=== PATIENT | female | born 1975 | race African-American/Black ===

== ENCOUNTER 2017-06-07 08:38 | Outpatient (CLI) | payer OTHER ==
--- NOTE | 2017-06-07 11:56 | MMO ---
BILATERAL SCREENING MAMMOGRAMS: Comparison: Outside mammogram films, 2012 and 2010. This study is interpreted with the assistance of computer aided detection. FINDINGS: Patient has breast augmentation with implants placed in 2013. There is a heterogeneously dense glandular pattern. The implants appear intact. No mass, distortion o r suspicious calcification. Recommend one year follow up. IMPRESSION: BIRADS 1 - negative. POS: ROBERT
== END 2017-06-07 08:39 | disposition home or self-care (01) ==
LOC: SCSMAMMO 08:38
PROVIDERS: ATTEND Family Medicine
DX: Z12.31 Encounter for screening mammogram for malignant neoplasm of breast (principal); Z80.3 Family history of malignant neoplasm of breast
CPT/HCPCS: 77067

== ENCOUNTER 2018-06-13 09:23 | Outpatient (CLI) | payer OTHER ==
--- NOTE | 2018-06-13 11:38 | ULT ---
ABDOMINAL ULTRASOUND: 06/13/2018 PROVIDED CLINICAL HISTORY: Hepatitis B and abdominal pain. COMPARISON: None. FINDINGS: The abdominal aorta is obscured by overlying bowel content. The visualized IVC and pancreas appear n ormal. The liver demonstrates no evidence for mass or intrahepatic biliary ductal dilatation. The common du ct is not dilated. The gallbladder demonstrates no stones, wall thickening, or pericholecystic fluid . Linear foci of increased echogenicity are seen within the gallbladder lumen, presumably reflecting tumefactive sludge. Some of these could also represent gallbladder folds. The kidneys demonstrate no hydronephrosis or mass. The spleen is not enlarged and demonstrates no fo meaghan abnormality. IMPRESSION: 1. No evidence for an acute process. 2. Material within the gallbladder lumen having a somewhat linear configuration, nonspecific. This may reflect tumefactive sludge. POS: TPC
--- NOTE | 2018-06-13 11:47 | ULT ---
TRANSABDOMINAL AND TRANSVAGINAL PELVIC ULTRASOUND WITH DOPPLER: DATE: 06/13/2018. PROVIDED CLINICAL HISTORY: Fibroids. FINDINGS: No comparisons. Uterus measures about 14.5 x 10.8 x 10.5 cm and demonstrates a diffusely heterogeneo us appearance with multifocal areas of circumscribed altered echogenicity within the myometrium jose tible with fibroids. Some of these appear calcified. The largest discrete area measures about 4.5 c m and is located within the region of the uterine fundus. The endometrium is suboptimally evaluated given its obscuration by shadowing from calcifications associated with these fibroids, but appears pr ominent in thickness in portions measuring up to 1.5 cm. The right and left ovaries appear sonographically normal. Color Doppler and spectral analysis of the ovarian waveforms demonstrates normal flow bilaterally. There is no evidence for significant free pelvic fluid. IMPRESSION: 1. Findings most compatible with uterine fibroid disease. Extent and location of fibroid disease co uld be better characterized via pelvic MRI as clinically indicated. 2. Nonspecific prominence of the uterine endometrium, suboptimally evaluated on the basis of this st udy. POS: TPC
== END 2018-06-13 09:24 | disposition home or self-care (01) ==
LOC: ULT 09:23
PROVIDERS: ATTEND Family Medicine
DX: D25.9 Leiomyoma of uterus, unspecified (principal); B18.1 Chronic viral hepatitis B without delta-agent
CPT/HCPCS: 76700; 76856

== ENCOUNTER 2018-08-09 07:57 | Outpatient (CLI) | payer OTHER ==
--- NOTE | 2018-08-09 08:48 | MMO ---
Bilateral MAMMO Bilat Diag DDI+HERBIE. CLINICAL HISTORY: Patient is 42 years old and is seen for diagnostic exam. The patient has the following family history of breast cancer: mother, at age 45, ; maternal grandmother and maternal aunt. The patient has a history of bilateral Implants in 2013 - SILICONE GEL. VIEWS: The views performed were: bilateral craniocaudal; bilateral mediolateral oblique; bilateral mediolateral; bilateral Implant displaced with tomosynthesis; and right exaggerated craniocaudal. FILMS COMPARED: The present examination has been compared to prior imaging studies performed at [facility] on 07/26/2010, 02/14/2013, 06/07/2017 and 08/09/2018. MAMMOGRAM FINDINGS: The breasts are heterogeneously dense, which could obscure a lesion on mammography. Normal implants are present.. There are no suspicious masses, suspicious calcifications, or new areas of architectural distortion. IMPRESSION: THERE IS NO MAMMOGRAPHIC EVIDENCE OF MALIGNANCY. A ROUTINE FOLLOW-UP MAMMOGRAM IN 1 YEAR IS RECOMMENDED. THE RESULTS OF THIS EXAM WERE SENT TO THE PATIENT. ACR BI-RADS Category 2 - Benign finding MAMMOGRAPHY NOTE: 1. A negative mammogram report should not delay a biopsy if a dominant of clinically suspicious mass is present. 2. Approximately 10% to 15% of breast cancers are not detected by mammography. 3. Adenosis and dense breasts may obscure an underlying neoplasm.
--- NOTE | 2018-08-09 09:06 | ULT ---
LIMITED SOFT TISSUE ULTRASOUND: Date: 08/09/18 PROVIDED CLINICAL HISTORY: Palpable abnormality. FINDINGS: Limited sonographic interrogation was performed of the soft tissues in the region of palpable concern at the patient's right infra-axillary region. This abnormality is not in a portion of the breast. Th ere is no real-time sonographic evidence for a focal mass. IMPRESSION: No sonographic correlate for the reported palpable finding in the soft tissues of the patient's right back. POS: OFF
== END 2018-08-09 07:58 | disposition home or self-care (01) ==
LOC: BICMAMMO 07:57
PROVIDERS: ATTEND Family Medicine
DX: N63.10 Unspecified lump in the right breast, unspecified quadrant (principal); Z80.3 Family history of malignant neoplasm of breast; Z98.82 Breast implant status
CPT/HCPCS: 76999; 77066; G0279

== ENCOUNTER 2018-08-30 09:14 | Inpatient (IN) | payer OTHER ==
--- NOTE | 2018-08-29 10:46 | HP ---
ADMITTING DIAGNOSES: 1. Fibroids, 14 to 16-week size. 2. Menorrhagia. 3. Dysmenorrhea. 4. Pelvic pain. 5. Family history of breast and ovarian cancer. SCHEDULED PROCEDURE: Total abdominal hysterectomy, bilateral salpingo-oophorectomy. HISTORY OF PRESENT ILLNESS: Ms. Ramesh is a 42-year-old, 2, para 2, status post x2, who first presented [place] in [place], complaining of menorrhagia. At that time, she was found to have multi-fibroid uterus with a positive family history and declined surgical management. She was given Lysteda for management of her menorrhagia; however, the patient had less than satisfactory results and desires definitive surgical management. IT OPERATIONS SPECIALIST HISTORY: x2. No history of dysplasia. Normal Pap smear at [facility] in January of 2017. PAST MEDICAL HISTORY: Significant for; 1. History of chronic viral hepatitis B without LFT abnormalities. 2. Hyperlipidemia. 3. Hypertension. SURGICAL HISTORY: Significant for breast augmentation. ALLERGIES: DENIES. MEDICATIONS: 1. Hydrochlorothiazide 25 p.o. daily. 2. Lysteda 650 two p.o. t.i.d. p.r.n. menorrhagia. 3. Pravastatin 20 mg p.o. daily. SOCIAL HISTORY: Denies tobacco, alcohol, or IV drug abuse. FAMILY HISTORY: Positive for first and second-degree relatives with breast cancer. REVIEW OF SYSTEMS: Unremarkable except for aforementioned complaints. PHYSICAL EXAMINATION: GENERAL: Black female. VITAL SIGNS: 5 feet and 5 inches, weight 140, BMI 23. Blood pressure 102/74, pulse 66, respirations 18. HEENT: Within normal limits. LUNGS: Clear to auscultation bilaterally. HEART: Regular rate and rhythm. BREASTS: Without masses bilaterally, status post augmentation. ABDOMEN: Soft and nontender with palpable irregular uterine contour, approximately 14 to 16-week size, slightly mobile. Adnexal mass is not appreciated. Vulva without lesions. Vagina without discharge. Cervix, parous. Uterus, irregular on bimanual exam. EXTREMITIES: Without clubbing, cyanosis, or edema. DIAGNOSTIC DATA: Ultrasound pelvis revealed uterus measuring 4.5 x 10.8 x 10.5 cm with diffuse heterogeneous appearance consistent with myomas, largest is approximately 4.5 cm, somewhat calcifications. No adnexal abnormalities are noted. IMPRESSION: Symptomatic fibroids with menorrhagia with a positive family history of breast cancer in first and second-degree relatives, desiring prophylactic oophorectomy. Secondary diagnoses include chronic hepatitis B, hyperlipidemia, hypertension. PLAN: We will proceed with total abdominal hysterectomy with bilateral salpingo-oophorectomy. Anticipate placement of On-Q pain pump. The patient understands risks and benefits of procedure and gives verbal and written informed consent for the procedure. We will administer SCDs for DVT prophylaxis. We will administer 2 g Ancef perioperatively for antibiotic prophylaxis. Job ID: [id number]
[2018-08-29 12:36] VITALS: BMI 23.3
[2018-08-30] MEDS ORDERED: Midazolam HCl 2 mg/2 ml Vial ONE (11:14)
[2018-08-30] MEDS ORDERED: Fentanyl 100 MCG/2 ML VIAL ONE ×2 (11:17→13:41)
[2018-08-30] MEDS ORDERED: Fentanyl 250 MCG/5 ML VIAL ONE (11:17)
[2018-08-30] MEDS ORDERED: Oxytocin 10 UNITS/ML VIAL ONE (11:23)
[2018-08-30] MEDS ORDERED: Bupivacaine 0.25% HCL 30 ML VIAL ONE (12:19)
[2018-08-30] MEDS ORDERED: Ropivacaine HCl/PF 750 ML in Premix Bag 1 BAG NERVE BLCK SCH ×2 (12:30→14:13)
[2018-08-30] MEDS ORDERED: Promethazine HCl 25 MG/ML VIAL SLOW IVP PRN (13:25)
[2018-08-30] MEDS ORDERED: Ondansetron PF 4 MG/2 ML Vial IVP PRN (13:25)
[2018-08-30] MEDS ORDERED: Naloxone HCl 0.4 mg/ml Vial IV PRN (13:25)
[2018-08-30] MEDS ORDERED: Ondansetron HCl/PF 4 MG/2 ML Vial IVP PRN (13:25)
[2018-08-30] MEDS ORDERED: diphenhydrAMINE 50 MG/ML VIAL IVP PRN (13:25)
[2018-08-30] MEDS ORDERED: Promethazine HCl 25 MG/ML VIAL IM PRN ×3 (13:25→13:52)
[2018-08-30] MEDS ORDERED: HYDROmorphone 10 mg/100 ml CADD IVPB PRN (13:25)
[2018-08-30] MEDS ORDERED: Meperidine HCl/PF 25 MG/ML VIAL SLOW IVP PRN (13:25)
[2018-08-30] MEDS ORDERED: Communication Order-Pharmacy FS SCH (13:30)
[2018-08-30] MEDS ORDERED: HYDROmorphone 2 MG/ML VIAL ONE (13:41)
[2018-08-30] MEDS ORDERED: Meperidine HCl/PF 25 MG/ML VIAL ONE (13:47)
[2018-08-30] MEDS ORDERED: diphenhydrAMINE 25 MG CAP PO PRN (13:52)
[2018-08-30] MEDS ORDERED: HYDROcodone/Acetaminophen 5/325 mg Tablet PO PRN ×2 (13:52)
[2018-08-30] MEDS ORDERED: Estradiol 0.05mg/24 Hour Patch (Weekly) TD SCH ×2 (13:52→18:30)
[2018-08-30] MEDS ORDERED: Rocuronium Bromide 10 MG/ML (10ML VIAL) ONE (15:13)
[2018-08-30] MEDS ORDERED: Glycopyrrolate 0.2 MG/ML 5 ML SYRINGE ONE (15:13)
[2018-08-30] MEDS ORDERED: Ketorolac Tromethamine 30 MG/ML VIAL ONE (15:13)
[2018-08-30] MEDS ORDERED: Dexamethasone 20 MG/5 ML VIAL ONE (15:13)
[2018-08-30] MEDS ORDERED: Metoclopramide HCl 10 MG/2 ML VIAL ONE (15:13)
[2018-08-30] MEDS ORDERED: Lidocaine 1% PF 5 ML VIAL ONE (15:13)
[2018-08-30] MEDS ORDERED: Ondansetron PF 4 MG/2 ML Vial ONE (15:13)
[2018-08-30] MEDS ORDERED: Phenylephrine HCL 10 MG/ML VIAL ONE (15:13)
[2018-08-30] MEDS ORDERED: PROPOFOL 200 MG/20 ML VIAL ONE (15:13)
[2018-08-30] MEDS: Ketorolac Tromethamine 30 MG/ML VIAL IVP SCH (18:28)
[2018-08-30] MEDS ORDERED: Sodium Chloride 0.9% 1,000 ML IV SCH (19:30)
[2018-08-30 19:54] LABS: Hemoglobin 10.1 g/dL (12.0-16.0); Mean Corpuscular HGB CONC 32.8 g/dL (32.0-36.0); Mean Corpuscular Hemoglobin 31.6 pg (27.0-31.0); Mean Corpuscular Volume 96.5 fL (78.0-98.0); Mean Platelet Volume 9.7 fL (7.4-10.4); Platelet Count 175 thou/uL (130-400); RBC Distribution Width 12.3 % (11.5-14.5); Red Blood Cell (RBC) Count 3.19 mill/uL (4.20-5.40); White Blood Cell (WBC) Count 18.3 thou/uL (4.8-10.8)
[2018-08-30] MEDS: Ondansetron PF 4 MG/2 ML Vial IVP PRN (20:13)
[2018-08-30 20:14] LABS: Anion Gap 13 mmol/L (10-20); BUN (Urea Nitrogen) 17 mg/dL (7.0-18.7); Calc. Creatinine Clearance 83 mL/min (70-130); Calcium 7.8 mg/dL (7.8-10.44); Carbon Dioxide 21 mmol/L (22-29); Chloride 105 mmol/L (98-107); Estimated GFR-MDRD 84; Glucose 168 mg/dL (70-105); Potassium 4.3 mmol/L (3.5-5.1); Sodium 135 mmol/L (136-145)
[2018-08-30] MEDS: Sodium Chloride 0.9% 1,000 ML IV SCH (20:24)
--- NOTE | 2018-08-30 20:25 | OP ---
DATE OF PROCEDURE: 08/30/2018 PREOPERATIVE DIAGNOSES: Fibroids with menorrhagia. POSTOPERATIVE DIAGNOSES: Fibroids with menorrhagia. PROCEDURES PERFORMED: Total abdominal hysterectomy and bilateral salpingo-oophorectomy for prophylaxis. STRIKE PLATE ATTACHER: Catina Berg MD ANESTHESIA: General endotracheal. ANESTHESIOLOGIST: Rowena De Oliveira MD MEDICATIONS: 2 g Ancef preincision, DVT prophylaxis with SCDs. DRAINS: Jacinto to gravity. EBL: 150 to 200 mL. COMPLICATIONS: None. OPERATIVE FINDINGS: 1. Approximately 16 week size uterus with multiple leiomyoma uteri. 2. Normal-appearing tubes and ovaries bilaterally. 3. Hemostasis with clear urine at the end of the procedure. 4. Correct counts. 5. Dual-lumen On-Q pump placement for postoperative analgesia with 750 mL of 0.2% ropivacaine at 4 mL per catheter per hour. DESCRIPTION OF PROCEDURE: After obtaining appropriate informed consent, the patient was taken to the operative room, where general endotracheal anesthesia was achieved without difficulty. She was prepped and draped in usual manner for hysterectomy abdominal. Cloudy urine with some particulate matter was noted upon Jacinto catheter placement and this was collected and sent for urine culture. A Pfannenstiel skin incision was made and carried down to the fascia, which was incised sharply superior and laterally with curved Razo scissors, dissected off sharply superiorly and inferiorly from the rectus. The peritoneum was entered bluntly, taking care to avoid trauma to the underlying viscera. Uriel O retractor was placed inside. Two moist lap sponges placed and packed the bowel all the way and the uterus mobilized. It was mobilized out of the abdominal incision. The round ligament on the patient's right identified, ureter was easily identified in the pelvic sidewall on the patient's right. The round ligament was ligated with 0 Vicryl suture, divided and the broad ligament opened up and developed an avascular plane. Window underneath the infundibulopelvic ligament was developed lateral to the ovary and a Ruth clamp was placed across and transected and ligated with 0 Vicryl suture. Skeletonization of the broad and cardinal ligament was carried out and the vesicouterine peritoneum was incised sharply off the lower uterine segment and upper cervix and vagina. It was dissected off sharply to the midline and a Ruth clamp was placed across the uterine vessels at the level of the internal cervical os. It was transected and ligated with 0 Vicryl suture and then a straight Gene was used to take the cardinal ligament as well and transect and ligate as well. At this point in time, attention was turned to the patient's left, where identical procedure was carried out. Ureter was identified and noted to be well away from the operative field. The round ligament ligated and transected. Broad ligament developed an avascular plane, infundibulopelvic ligament isolated, clamped and transected and ligated and then skeletonization of the uterine vessels. The vesicouterine peritoneum was completed in its dissection off the cervix and upper vagina and noted to be well below the level of the cervical vaginal interface. Ruth clamp was placed across the uterine vessels on the left and these were transected and ligated. At this point in time, the specimen was amputated at the level of the internal cervical os. A double tooth tenaculum was placed on the cervical stump remaining and straight Gene's were used to clamp, then transect and ligate the cardinal ligaments down to the level of the vaginal apex. At this level, Ruth clamps were placed across amputating the cervix. The vagina was closed using one interrupted [id number] 0 Vicryl and two Hofmeister stitches of 0 Vicryl. Suction and irrigation was carried out. Ureters were reinspected, noted to be away from the operative field, all pedicles noted to be dry. Ale was applied across the vaginal apex and the rest of the raw surfaces from the surgery. The two moist laparotomy sponges were removed. The Uriel O retractor was removed. The peritoneum was closed using a running continuous 2-0 plain gut. Counts were correct x1. The rectus was inspected and noted to be dry. A 5-inch dual-lumen On-Q pain pump catheters were placed under direct visualization from this just superior to the incision and primed. The fascia was reapproximated using running continuous 0 PDS x2, taking care to avoid incorporation of the On-Q pain pumps into the fascial closure. Subcutaneous tissue was irrigated, rendered hemostatic with Bovie cautery, and the skin was reapproximated using 4-0 Monocryl and Dermabond. Dermabond and Tegaderm were used to secure the On-Q catheters and the patient was awakened, extubated, and taken to recovery room in good condition. Job ID: [id number]
[2018-08-31] MEDS: Simvastatin 5 MG TAB PO SCH ×2 (00:16→21:40)
[2018-08-31] MEDS: Ketorolac Tromethamine 30 MG/ML VIAL IVP SCH ×4 (00:17→18:01)
[2018-08-31] MEDS: Zolpidem Tartrate 5 MG TAB PO PRN (00:34)
[2018-08-31] MEDS: Sodium Chloride 0.9% 1,000 ML IV SCH ×3 (00:36→22:54)
[2018-08-31] MEDS: Ondansetron PF 4 MG/2 ML Vial IVP PRN ×2 (02:47→09:13)
[2018-08-31 06:50] LABS: Hemoglobin 8.4 g/dL (12.0-16.0); Mean Corpuscular HGB CONC 34.8 g/dL (32.0-36.0); Mean Corpuscular Volume 94.8 fL (78.0-98.0); Mean Platelet Volume 9.8 fL (7.4-10.4); Platelet Count 138 thou/uL (130-400); RBC Distribution Width 12.1 % (11.5-14.5); Red Blood Cell (RBC) Count 2.56 mill/uL (4.20-5.40); White Blood Cell (WBC) Count 10.7 thou/uL (4.8-10.8)
[2018-08-31] MEDS: Lisinopril 20 MG TAB PO SCH ×2 (09:13→10:23)
[2018-08-31] MEDS: Hydrochlorothiazide 25 MG TAB PO SCH ×2 (09:13→10:23)
[2018-08-31] MEDS ORDERED: Fentanyl 100 MCG/2 ML VIAL SLOW IVP PRN (10:44)
--- NOTE | 2018-08-31 11:01 | PRG ---
DATE OF SERVICE: 08/31/2018 TIME OF SERVICE: 10:30. SUBJECTIVE: The patient is resting comfortably. She states that her pain has significantly improved. PHYSICAL EXAMINATION: VITAL SIGNS: Temperature 98.3, pulse 87, respirations 18, blood pressure 113/62, T-max has been less than 99.0. I's and O's; the patient has had 2 L of IV fluids and 600 mL of p.o. intake, she had 800 mL of urine output over the last 12-hour shift. GENERAL: Black female, resting comfortably, eating a regular diet. LUNGS: Clear to auscultation bilaterally. HEART: Regular rate and rhythm. ABDOMEN: Soft and nontender. She has bowel sounds. She does not have distention. Her bandage is dry. Perineum is dry. EXTREMITIES: Without clubbing, cyanosis, or edema. LABORATORY DATA: The patient did not have a preoperative blood count done at [facility]. Immediately postop due to decreased urine output, it was noted to be 30%. This morning it is 24.2%. This is after approximately 2 L of IV fluid difference with 30% number and the patient had been n.p.o. for approximately 18 hours. IMPRESSION: Anemia. No evidence of acute intraabdominal hemorrhage on exam or vital signs. Suspect hemodilution, and that initial preoperative hematocrit was likely in the low 30s. PLAN: Recheck hemogram at 1500 hours. Routine advancement of care. We will hold blood pressure medications for hypertension if noted. Otherwise, routine post abdominal hysterectomy care. Anticipating discharge back to [facility], [facility] on 09/02. Job ID: [id number]
[2018-08-31] MEDS: HYDROcodone/Acetaminophen 10/325 mg Tablet PO PRN ×3 (12:49→21:44)
[2018-08-31 14:58] LABS: Hemoglobin 7.9 g/dL (12.0-16.0); Mean Corpuscular HGB CONC 33.8 g/dL (32.0-36.0); Mean Corpuscular Hemoglobin 32.3 pg (27.0-31.0); Mean Corpuscular Volume 95.5 fL (78.0-98.0); Mean Platelet Volume 9.2 fL (7.4-10.4); Platelet Count 123 thou/uL (130-400); RBC Distribution Width 12.2 % (11.5-14.5); Red Blood Cell (RBC) Count 2.45 mill/uL (4.20-5.40); White Blood Cell (WBC) Count 8.4 thou/uL (4.8-10.8)
[2018-08-31] MEDS: Simethicone Chewable 80 MG TAB PO PRN (21:44)
[2018-08-31] MEDS ORDERED: Bisacodyl 10 MG SUPP PR PRN (22:16)
[2018-08-31] MEDS: Milk Of Magnesia 30 ML UDCUP PO PRN (22:19)
[2018-09-01] MEDS: Ketorolac Tromethamine 30 MG/ML VIAL IVP SCH ×3 (00:12→12:37)
[2018-09-01] MEDS: Sodium Chloride 0.9% 1,000 ML IV SCH ×3 (00:18→23:53)
[2018-09-01] MEDS: Zolpidem Tartrate 5 MG TAB PO PRN ×2 (01:01→21:44)
[2018-09-01] MEDS ORDERED: ALPRAZolam 0.25 MG TAB PO SCH (03:00)
[2018-09-01] MEDS ORDERED: Lisinopril 20 MG TAB PO SCH (03:00)
--- NOTE | 2018-09-01 08:39 | RAD ---
ONE VIEW ABDOMEN: HISTORY: Abdominal distention. Evaluate for bleeding. COMPARISON: None. FINDINGS: There is a segment of air-filled bowel projecting over the mid portion of the abdomen. This may repr esent a segment of descending colon and sigmoid colon. There is a copious amount of fecal material a nd what is presumed to be the proximal descending colon and ascending colon. Overlying tubes are torey ntified. Correlate clinically. Better interrogation with CT is recommended. Small focus of air is noted in the midline of the pelvis likely within the rectum. There are small pockets of air I the le ft and right aspect of the pelvis. Findings may be iatrogenic. IMPRESSION: 1. Air-filled loop of bowel in the midline of the abdomen which may be associated with the distal co lily. Limited evaluation. Consider CT. 2. Copious fecal material. Correlate for a component of constipation. 3. Possible free air in the pelvis. 4. Results of the study discussed with the patient's nurse, Bety, 09/01/2018 at 8:0 a.m. CODE CR POS: OFF
[2018-09-01] MEDS: Lisinopril 20 MG TAB PO SCH (10:05)
--- NOTE | 2018-09-01 10:28 | PRG ---
DATE OF SERVICE: 09/01/2018 TIME OF SERVICE: 0820 hours. SUBJECTIVE: The patient is postoperative day #2. She reports feeling of bloatedness, however, she is passing gas. She has no nausea, no vomiting. OBJECTIVE: VITAL SIGNS: Blood pressure is 118/72. Her pulse is 82. She had pulse up to 120 overnight, her lisinopril had been held. She remained afebrile. Pulse at 0400 hours was 104, respirations are 16 to 18. LUNGS: Clear to auscultation bilaterally. HEART: Regular rate and rhythm. ABDOMEN: Soft. It is slightly distended. She has bowel sounds in all 4 quadrants and is appropriately tender in all 4 quadrants. She does not have rebound or guarding. Her On-Q lumens are present x2 and no leakage is noted. Incision is dry. Perineum is dry. EXTREMITIES: Nontender. LABORATORY DATA: Hematocrit is stable at approximately 24% with no elevated white count. KUB was performed. No evidence of retained laparotomy sponge was noted. Nonspecific bowel gas pattern was noted. No evidence of ileus. IMPRESSION: The patient is doing well, postoperative day #2. Slight delay in return of bowel function, although the patient does not show signs of ileus at this time. PLAN: Continue regular diet. Milk of magnesia and prune juice. Ambulation. Anticipate discharge p.m. 09/02 or early 09/03 to [facility]. Continue On-Q pain pump. Job ID: [id number]
[2018-09-01] MEDS: Hydrochlorothiazide 25 MG TAB PO SCH (10:57)
[2018-09-01] MEDS: Ibuprofen 800 MG TAB PO SCH ×2 (13:22→21:44)
[2018-09-01] MEDS: HYDROcodone/Acetaminophen 10/325 mg Tablet PO PRN (13:23)
[2018-09-01] MEDS: Simethicone Chewable 80 MG TAB PO PRN (21:44)
[2018-09-01] MEDS: Simvastatin 5 MG TAB PO SCH (21:44)
[2018-09-02] MEDS: Ibuprofen 800 MG TAB PO SCH ×3 (05:41→21:15)
[2018-09-02] MEDS: HYDROcodone/Acetaminophen 10/325 mg Tablet PO PRN ×2 (05:43→21:17)
[2018-09-02] MEDS: Sodium Chloride 0.9% 1,000 ML IV SCH ×3 (05:44→22:05)
--- NOTE | 2018-09-02 06:40 | PRG ---
DATE OF SERVICE: 09/02/2018 TIME OF SERVICE: 0621. The patient is now postoperative day #3, status post TAHBSO. She states she feels much better this morning. She has been passing gas. She has no nausea or vomiting. OBJECTIVE: VITAL SIGNS: Temperature 98.3, T-max 98.7, pulse 89, respirations 16, blood pressure 107/65. HEENT: Within normal limits. LUNGS: Clear to auscultation bilaterally. HEART: Regular rate and rhythm. ABDOMEN: Soft and nontender. Bowel sounds in all 4 quadrants. Incision is intact and dry. ON-Q is working appropriately. RECTAL: Perineum dry. EXTREMITIES: Nontender. No swelling. LABORATORY DATA: Urine culture performed intraoperatively due to cloudy urine is negative. No growth at 48 hours. IMPRESSION: Status post total abdominal hysterectomy and bilateral salpingo-oophorectomy with improvement in pain control and no evidence of ileus. PLAN: Routine care. Due to staffing issues and prescription issues at [facility], we will delay discharge till Monday morning. Anticipate discharge home on [place] with ON-Q pump for another 2 to 3 days after discharge. Job ID: [id number]
[2018-09-02] MEDS: Hydrochlorothiazide 25 MG TAB PO SCH (10:41)
[2018-09-02] MEDS: Lisinopril 20 MG TAB PO SCH (10:41)
[2018-09-02] MEDS: Milk Of Magnesia 30 ML UDCUP PO PRN (19:37)
[2018-09-02] MEDS: Simvastatin 5 MG TAB PO SCH (21:15)
[2018-09-02] MEDS: Zolpidem Tartrate 5 MG TAB PO PRN (21:18)
[2018-09-03] MEDS: Ibuprofen 800 MG TAB PO SCH (05:37)
[2018-09-03 07:29] VITALS: TEMP 98.4
[2018-09-03] MEDS: Lisinopril 20 MG TAB PO SCH (07:31)
[2018-09-03] MEDS: Sodium Chloride 0.9% 1,000 ML IV SCH (08:00)
[2018-09-03] MEDS: Hydrochlorothiazide 25 MG TAB PO SCH (09:45)
[2018-09-03] MEDS: HYDROcodone/Acetaminophen 10/325 mg Tablet PO PRN (09:54)
[2018-09-03 11:27] VITALS: BP 121/65
--- NOTE | 2018-09-03 14:14 | DIS ---
DATE OF ADMISSION: 08/30/2018 DATE OF DISCHARGE: 09/03/2018 ADMITTING DIAGNOSES: Fibroids and menorrhagia. PRIMARY PROCEDURE: Total abdominal hysterectomy, bilateral salpingo-oophorectomy. SUMMARY OF HOSPITAL COURSE: The patient underwent a [place], BSO on 08/30/2018. Preoperative hematocrit was 40%. Intraoperative EBL was approximately 250 to 500 mL. Hematocrit dropped to 24% postoperatively. This seemed to be somewhat be secondary to hydration. No evidence of hematoma or intraabdominal hemorrhage was noted, and hematocrit was noted to be stable. The patient's postoperative course was complicated by a mild ileus that resolved on its own. The patient had an On-Q pain pump placed, that was discontinued after emptying itself on approximately postoperative day #3 to 4. She is tolerating p.o. well with stable vitals. Discharge exam revealed an intact incision, no distention, no evidence of erythema or infection. Pathology was benign with a 760 g uterus. DISCHARGE MEDICATIONS: Include; 1. Ibuprofen. 2. Tylenol No. 3. FOLLOWUP: Followup will be with [facility] [place] in 6 weeks. Routine weightlifting and activity restrictions for 6 weeks postoperatively. The patient discharged to [facility]. Job ID: [id number]
== END 2018-09-03 13:43 | DRG 742 ==
LOC: EEVIPCON 09:25 → SURG A 09:25 → 3SE 14:03
PROVIDERS: ADMIT Obstetrics & Gynecology; ATTEND Obstetrics & Gynecology
PROC: 0UT90ZZ Resection of Uterus, Open Approach (ICD-10-PCS; principal; 2018-08-30)
PROC: 0UT20ZZ Resection of Bilateral Ovaries, Open Approach (ICD-10-PCS; 2018-08-30)
PROC: 0UT70ZZ Resection of Bilateral Fallopian Tubes, Open Approach (ICD-10-PCS; 2018-08-30)
PROC: 0UTC0ZZ Resection of Cervix, Open Approach (ICD-10-PCS; 2018-08-30)
DX: D25.9 Leiomyoma of uterus, unspecified (principal); B18.1 Chronic viral hepatitis B without delta-agent; K56.7 Ileus, unspecified; N94.6 Dysmenorrhea, unspecified; N92.0 Excessive and frequent menstruation with regular cycle; I10 Essential (primary) hypertension; D64.9 Anemia, unspecified; E78.5 Hyperlipidemia, unspecified; Z79.899 Other long term (current) drug therapy
CPT/HCPCS: 36415; 74018; 80048; 85027; 86850; 86900; 86901; 87086; 88307; 88311; J0690; J1100; J1170; J1200; J1885; J2001; J2175; J2250; J2370; J2405; J2590; J2704; J2765; J2795; J3010; S0020